=== PATIENT | male | born 1945 | race Caucasian/White ===

== ENCOUNTER → 2019-08-07 10:17 | Outpatient (BNVA) | payer MEDICARE, SELFPAY | PROVIDERS: Family Provider Nurse Practitioner Family; PCP Nurse Practitioner Family; Visit Provider Registered Nurse | DX: R05 Cough (principal) | CPT/HCPCS: 87804 ==

== ENCOUNTER → 2019-09-01 14:28 | Outpatient (BNVA) | payer MEDICARE, SELFPAY | PROVIDERS: Family Provider Nurse Practitioner Family; PCP Nurse Practitioner Family; Visit Provider Registered Nurse | DX: J06.9 Acute upper respiratory infection, unspecified (principal); R68.89 Other general symptoms and signs; R05 Cough | CPT/HCPCS: 87804 ==

== ENCOUNTER → 2019-10-03 11:30 | Outpatient (BNVA) | payer MEDICARE, SELFPAY | PROVIDERS: Family Provider Nurse Practitioner Family; PCP Nurse Practitioner Family; Visit Provider Nurse Practitioner Family | DX: B86 Scabies (principal); I10 Essential (primary) hypertension; R21 Rash and other nonspecific skin eruption | CPT/HCPCS: 80053; 85025 ==

== ENCOUNTER → 2020-01-26 16:42 | Outpatient (BNVA) | payer MEDICARE, SELFPAY | PROVIDERS: Family Provider Nurse Practitioner Family; PCP Nurse Practitioner Family; Visit Provider Registered Nurse | DX: R53.83 Other fatigue (principal); J44.9 Chronic obstructive pulmonary disease, unspecified; F41.1 Generalized anxiety disorder; F17.210 Nicotine dependence, cigarettes, uncomplicated; R42 Dizziness and giddiness | CPT/HCPCS: 80053; 81000; 84443; 85025 ==